=== PATIENT | female | born 1995 | race Asian ===

== ENCOUNTER 2025-10-24 16:04 | Outpatient (OUT) | payer SELFPAY ==
--- NOTE | 2025-10-24 | XR_ITS ---
[place] [id number] Patient Name: YUSUF NEWBERRY MRN: [id number] date: 1995 Sex: F Assigned Patient Location: [facility] Current Patient Location: [facility] Accession/Order Number: [id number] Exam Date: 10/24/2025 16:40 Report Date: 10/24/2025 21:23 At the request of: LESLI CASTLE MD Procedure: XR lumbar spine min 4V 5 views lumbar spine HISTORY: Bilateral back pain. Lifting injury. Straightening of lumbar lordosis. Adequate disc spaces. Adequate vertebral heights. Adequate facets. No fracture. No acute bony findings. XR/XR lumbar spine min 4V IMPRESSION: Straightening of lumbar lordosis secondary to patient positioning or spasm. No acute findings. Impression dictated by: Ze Junior M.D. 10/24/2025 9:23 PM Dictation Location: [facility] Electronically authenticated by: [id number] Date: 10/24/2025 21:23
== END 2025-10-24 16:05 | disposition home or self-care (01) ==
PROVIDERS: PCP Family Medicine; Visit Provider Family Medicine
DX: M54.50 Low back pain, unspecified (principal)
CPT/HCPCS: 72110